=== PATIENT | female | born 1965 | race Caucasian/White ===

== ENCOUNTER → 2017-10-09 | Outpatient (CLI) | payer OTHER ==
[2017-10-09 16:53] LABS: CSF PROTEIN 44 mg/dL (15-45)
[2017-10-09 16:58] LABS: GLUCOSE, CSF 53 mg/dL (40-80)
[2017-10-09 17:11] LABS: APPEARANCE CLEAR, COLORLESS; CSF TUBE NUMBER TUBE #4
[2017-10-09 17:12] LABS: RED CELL COUNT 0 /MM^3 (0-1); WHITE CELL COUNT 6 /MM^3 (0-5)
[2017-10-09 18:16] LABS: CSF EOSINOPHILS 0 % (0-25); MONONUCLEAR WBC'S 100 % (50-90); POLYNUCLEAR WBC'S 0 % (0-3)
[2017-10-10 15:09] LABS: VARICELLA-ZOSTER VIRUS PCR+ <500 (<500)
[2017-10-10 22:02] LABS: HSV CSF Spec Source CSF (())
[2017-10-11 18:42] LABS: Albumin, CSF 25.5 mg/dL (8.0-42.0); Albumin, Serum 4.5 g/dL (3.5-4.9); IgG Index, CSF 0.76 index (<0.66); IgG, CSF 3.8 mg/dL (0.8-7.7); IgG, Serum 883 mg/dL (694-1618)
== END | disposition home or self-care (01) ==
LOC: RAD 14:14
PROVIDERS: Physician Assistant
PROC: 009U3ZZ Drainage of Spinal Canal, Percutaneous Approach (ICD-10-PCS; principal; 2017-10-09)
DX: R93.0 Abnormal findings on diagnostic imaging of skull and head, not elsewhere classified (principal)
CPT/HCPCS: 62270; 77003; 82040 90; 82042 90; 82164 90; 82784 90; 82945; 83916 90; 84157; 86592 90; 86617 90; 86618 90; 87070; 87205; 87529 90; 87799 90; 89051